=== PATIENT | female | born 1965 | race Two or more races ===

== ENCOUNTER 2023-11-12 20:05 | Inpatient (IN) | payer MEDICAID, OTHER ==
[~2023-11-12] VITALS: Ht 160 cm; Wt 84.9 kg
[2023-11-12 21:27] LABS: Urine Amorphous Crystal FEW /hpf (None Seen); Urine Bacteria FEW /hpf (None Seen); Urine Blood Negative /uL (Negative); Urine Clarity Clear (Clear); Urine Color Light-Yellow (Yellow); Urine Protein, UAD Negative (Negative); Urine Specific Gravity 1.004 (1.001-1.035); Urine Urobilinogen Normal (Negative); Urine WBC 4 /hpf (0 - 5); Urine pH 6.5 (5.0-9.0)
[2023-11-12 21:35] LABS: Basophils # (auto) 0 10 ^3/uL (0-0.2); Basophils % (auto) 0.4 % (0.0-2.0); Eosinophils # (auto) 0.2 10 ^3/uL (0-0.8); Eosinophils % (auto) 2.3 % (0.0-7.0); Hematocrit 43.3 % (36.0-46.0); Hemoglobin 14.4 g/dL (12.2-16.2); Lymphocytes # (auto) 2.4 10 ^3/uL (0.4-5.4); Lymphocytes % (auto) 35.4 % (10.0-50.0); Mean Corpuscular Hgb Conc. 33.2 g/dL (32.0-36.0); Mean Corpuscular Volume 90.5 fL (80.0-100.0); Monocytes # (auto) 0.9 10 ^3/uL (0-1.3); Monocytes % (auto) 13.3 % (0.0-12.0); Neutrophils # (auto) 3.2 10 ^3/uL (1.6-8.6); Neutrophils % (auto) 48.6 % (37.0-80.0); Nucleated Red Blood Cells % 0.2 %; Red Blood Cells 4.78 10^6/uL (4.0-5.20); Red Cell Distribution Width 15.4 % (11.8-14.3); White Blood Cell 6.7 10^3/uL (4.4-10.8)
[2023-11-12 21:53] LABS: Albumin 4.7 g/dL (3.2-4.8); Alkaline Phosphatase 753 U/L (46-116); Anion Gap 11 (5-15); Aspartate Aminotransferase 665 U/L (13-40); BUN/Creatinine Ratio 12.9 (10.0-20.0); Bilirubin, Total 3.1 mg/dL (0.2-1.0); Blood Urea Nitrogen 11 mg/dL (9-23); Calcium 10.2 mg/dL (8.7-10.4); Carbon Dioxide 21 mmol/L (20-30); Chloride 104 mmol/L (98-107); Glucose 135 mg/dL (74-106); Lipase 46 U/L (12-53); Potassium 4.4 mmol/L (3.5-5.1); Sodium 136 mmol/L (136-145); Total Protein 7.9 g/dL (5.7-8.2)
[2023-11-12 22:04] LABS: Alanine Aminotransferase 1188 U/L (7-40)
[2023-11-12 23:06] VITALS: PULSE 92; RESP 16; O2SAT 97
[2023-11-12] MEDS: diphenhdrAMINE HCL 50 MG/1 ML VL IV ONE (23:39)
[2023-11-13] MEDS: SODIUM CHLORIDE 0.9% 1,000 ML IV ONE (03:24)
[2023-11-13] MEDS ORDERED: ONDANSETRON HCL 4 MG/2 ML VIAL IV PRN (05:00)
[2023-11-13 06:30] LABS: Alanine Aminotransferase 911 U/L (7-40); Albumin 4.2 g/dL (3.2-4.8); Alkaline Phosphatase 663 U/L (46-116); Anion Gap 12 (5-15); Aspartate Aminotransferase 449 U/L (13-40); BUN/Creatinine Ratio 10.5 (10.0-20.0); Bilirubin, Total 2.4 mg/dL (0.2-1.0); Blood Urea Nitrogen 8 mg/dL (9-23); Calcium 9.7 mg/dL (8.7-10.4); Carbon Dioxide 19 mmol/L (20-30); Chloride 105 mmol/L (98-107); Glucose 121 mg/dL (74-106); Potassium 4.3 mmol/L (3.5-5.1); Sodium 136 mmol/L (136-145)
[2023-11-13 06:31] LABS: Total Protein 7.1 g/dL (5.7-8.2)
[2023-11-13 07:39] VITALS: PULSE 71; RESP 14; O2SAT 94
[2023-11-13] MEDS: diphenhdrAMINE HCL 50 MG/1 ML VL IV PRN (07:52)
[2023-11-13] MEDS: LACTULOSE 20Gm/30ML SOLN PO SCH (10:07)
[2023-11-13 10:55] LABS: Basophils # (auto) 0 10 ^3/uL (0-0.2); Basophils % (auto) 0.4 % (0.0-2.0); Eosinophils # (auto) 0.1 10 ^3/uL (0-0.8); Eosinophils % (auto) 1.8 % (0.0-7.0); Hematocrit 40.9 % (36.0-46.0); Hemoglobin 13.6 g/dL (12.2-16.2); Lymphocytes # (auto) 1.8 10 ^3/uL (0.4-5.4); Lymphocytes % (auto) 32.7 % (10.0-50.0); Mean Corpuscular Hemoglobin 30.1 pg (28.0-32.0); Mean Corpuscular Hgb Conc. 33.3 g/dL (32.0-36.0); Mean Corpuscular Volume 90.4 fL (80.0-100.0); Monocytes # (auto) 0.5 10 ^3/uL (0-1.3); Neutrophils % (auto) 55.1 % (37.0-80.0); Red Blood Cells 4.52 10^6/uL (4.0-5.20); Red Cell Distribution Width 15.5 % (11.8-14.3); White Blood Cell 5.4 10^3/uL (4.4-10.8)
[2023-11-13 10:57] LABS: INR 1.03 (0.9-1.15); Partial Thromboplastin Time 27.3 SEC (24.5-34.5); Prothrombin Time 10.9 sec (9.3-11.8)
[2023-11-13 11:00] VITALS: BP 133/77; PULSE 84; RESP 16; TEMP 98.4; O2SAT 96
[2023-11-13 11:06] LABS: Magnesium 1.9 mg/dL (1.6-2.6)
[2023-11-13 11:07] LABS: CRP High Sensitivity 0.9 mg/dL (<1.0)
[2023-11-13] MEDS ORDERED: BENA5TAB9 PO (11:12)
[2023-11-13] MEDS ORDERED: ATOR-47 PO (11:12)
[2023-11-13 11:22] LABS: Amphetamine Screen, Urine Neg (NEGATIVE); Barbiturate Scree,Urine Neg (NEGATIVE); Benzodiazephine Screen, Urine Neg (NEGATIVE); Cannabinoid Screen, Urine Neg (NEGATIVE); Cocaine Screen, Urine Neg (NEGATIVE); Opiate Scree,Urine Neg (NEGATIVE); Phencyclidine Screen, Urine Neg (NEGATIVE)
[2023-11-13] MEDS ORDERED: diphenhdrAMINE HCL 25 MG CAP PO PRN (11:30)
[2023-11-13] MEDS ORDERED: [UNRECOGNIZED DRUG - CODE] EX (13:24)
[2023-11-13] MEDS ORDERED: LACT10SO3 PO (13:24)
[2023-11-13] MEDS ORDERED: HYDR1CAP27 PO (13:24)
[2023-11-13 14:22] VITALS: BP 116/58; PULSE 79; RESP 18; TEMP 98.6; O2SAT 97
[2023-11-14 08:30] LABS: Hepatitis B Surface Antigen Negative (Negative)
[2023-11-14 08:50] LABS: Hepatitis A Ab IgM Negative
[2023-11-14 08:51] LABS: Hepatitis B Core IgM Negative; Hepatitis C Antibody Negative (Negative)
[2023-11-14] MEDS ORDERED: LACTULOSE 20Gm/30ML SOLN PO SCH (10:00)
== END 2023-11-13 15:00 | disposition home or self-care (01) ==
LOC: ER 20:05 → OVERFLOW 11-13 04:59 → EAST 11-13 11:05
PROVIDERS: ADMIT Internal Medicine Pulmonary Disease; ATTEND Radiology Diagnostic Radiology
DX: K83.1 Obstruction of bile duct (principal); C22.9 Malignant neoplasm of liver, not specified as primary or secondary; E72.20 Disorder of urea cycle metabolism, unspecified; K74.60 Unspecified cirrhosis of liver; L29.9 Pruritus, unspecified; E66.9 Obesity, unspecified; R74.8 Abnormal levels of other serum enzymes; Z85.05 Personal history of malignant neoplasm of liver; Z92.21 Personal history of antineoplastic chemotherapy; Z68.33 Body mass index [BMI] 33.0-33.9, adult; R74.01 Elevation of levels of liver transaminase levels
CPT/HCPCS: 36415; 76705; 80053; 80061; 80074; 80307; 81001; 82140; 82150; 83036; 83690; 83735; 84443; 85025; 85610; 85730; 86141; 96361; 96374; 96376; G0378